=== PATIENT | female | born 1940 | race Caucasian/White ===

== ENCOUNTER 2021-06-19 15:35 | Outpatient (REF) | payer MEDICARE, SELFPAY ==
[2021-06-19 16:51] LABS: Anion Gap 12 (12-20); Blood Urea Nitrogen 21 mg/dL (9-16); Carbon Dioxide 28 mmol/L (22-29); Chloride 106 mmol/L (96-108); Estimated Glomerular Filt Rate > 60; Glucose Random 99 mg/dL (60-115); Potassium 4.6 mmol/L (3.3-5.1); Sodium 141 mmol/L (135-145)
[2021-06-19 17:12] LABS: Thyroid Stimulating Hormone 1.14 uIU/mL (0.32-4.0)
[2021-06-19 17:33] LABS: Folate 16.5 ng/mL (> or = 4.0); Vitamin B12 606 pg/mL (200-900)
== END 2021-06-19 15:36 | disposition home or self-care (01) ==
LOC: HO.LAB 15:35
PROVIDERS: Visit Provider Psychiatry & Neurology Neurology
DX: G31.84 Mild cognitive impairment of uncertain or unknown etiology (principal)
CPT/HCPCS: 36415; 80048; 82607; 82746; 84443